=== PATIENT | female | born 1985 | race African-American/Black ===

== ENCOUNTER 2017-04-10 18:43 | Emergency (ER) | payer SELFPAY ==
[~2017-04-10] VITALS: Ht 167.6 cm; Wt 88.0 kg
[~2017-04-10 18:43] MED LIST: CIPR0.3S RIGHT EAR; IBUP800T23 PO
[2017-04-10 18:45] VITALS: BP 138/93; PULSE 80; RESP 16; TEMP 98.4; O2SAT 100
== END 2017-04-10 22:30 | disposition left against medical advice (07) ==
LOC: NED 18:43
DX: M25.512 Pain in left shoulder (principal); R07.89 Other chest pain; Z53.21 Procedure and treatment not carried out due to patient leaving prior to being seen by health care provider
CPT/HCPCS: 99281